=== PATIENT | male | born 1945 | race Hispanic/Latino ===

== ENCOUNTER 2024-06-27 11:17 | Emergency (ER) | payer OTHER ==
[~2024-06-27] VITALS: Ht 165.1 cm; Wt 70.3 kg
--- NOTE | 2024-06-27 11:50 | ERN ---
ED Note History of Present Illness Stated Complaint: PAIN ON BOTH LEGS Time Seen by MD: 11:18 Dictation: PATIENT IS A 79-YEAR-OLD DIABETIC MALE HERE WITH COMPLAINTS OF ERYTHEMA TENDERNESS TO THE ANTERIOR TIBIAL AREA BILATERALLY FOR THE LAST SEVERAL WEEKS. NO FEVER NO CHILLS NO NAUSEA VOMITING CURRENTLY IS AUGMENTIN FROM HIS PRIMARY CARE DOCTOR AT THE [facility]. NEUROVASCULAR AND CMS ARE INTACT HOWEVER SENSATION IS DIMINISHED SECONDARY TO PATIENT'S DIABETES. PATIENT ALSO WAS A HEMODIALYSIS PATIENT GOES Tuesday AND TUESDAY HOWEVER WENT YESTERDAY AND COMPLETED HIS DIALYSIS. Allergies: Coded Allergies: No Known Allergies (Unverified Allergy, Unknown, 06/27/24) Past Medical History RN Note Reviewed/Agreed w/PFSH: Yes Review of System Dictation CONSTITUTIONAL: NEGATIVE EXCEPT FOR HPI HEAD/FACE: NEGATIVE EXCEPT FOR HPI EENT: NEGATIVE EXCEPT FOR HPI RESPIRATORY: NEGATIVE EXCEPT FOR HPI GASTROINTESTINAL/ABDOMINAL: NEGATIVE EXCEPT FOR HPI GENITOURINARY: NEGATIVE EXCEPT FOR HPI MUSCULOSKELETAL: NEGATIVE EXCEPT FOR HPI INTEGUMENTARY: NEGATIVE EXCEPT FOR HPI BILATERAL LOWER TIBIAL ERYTHEMA, CHRONIC NEUROLOGICAL/PSYCH: NEGATIVE EXCEPT FOR HPI HEMATOLOGIC/LYMPHATIC: NEGATIVE EXCEPT FOR HPI ALL SYSTEMS NEGATIVE, EXCEPT NOTED ABOVE. 13 POINT REVIEW OF SYSTEMS ASSESSED AND ALL NEGATIVE EXCEPT FOR ABOVE. Initial Vital Sign VS Vital Signs Date Time Temp Pulse Resp B/P (MAP) Pulse Ox O2 Delivery O2 Flow Rate FiO2 06/27/24 11:52 98.2 79 18 154/67 98 06/27/24 12:22 Room Air* 0 21 Physical Exam Dictation VITAL SIGNS REVIEWED 0/10 GENERAL APPEARANCE: ALERT, ORIENTED X 3, NO ACUTE DISTRESS, WELL DEVELOPED, NOURISHED. HEAD AND FACE: NON-TRAUMATIC. EYES: PERRL, PINK CONJUNCTIVAS, EYELID NO TRAUMA, ANTERIOR CHAMBER WITH ARCUS S ENILIS. EARS: PINNAS INTACT AND NO SIGNS OF TRAUMA OR ERYTHEMA EAR CANALS CLEAR AND NO DISCHARGE TM NO ERYTHEMA NOSE: NO DISCHARGE, NO BLEEDING. OROPHARYNX: MOUTH NORMAL, TONGUE PINK, PHARYNX CLEAR,NO ERYTHEMA, TONSILS NO EXUDATES, NO ABSCESSES NOTED, MUCOUS MEMBRANE MOIST NECK: SUPPLE, NON-TENDER, NO THYROMEGALY, NO MASSES, NO JVD, NO BRUITS BREAST:DEFERRED CHEST:NO TENDERNESS, NO CREPITUS, NO PARADOXICAL MOVEMENT, NO RETRACTIONS LUNGS:CLEAR, WELL-VENTILATED, SYMMETRIC, NO RALES, NO WHEEZING, NO RHONCHI, NO STRIDOR, GOOD BREATH SOUNDS BILATERALLY HEART: REGULAR RATE, REGULAR RHYTHM, NO MURMUR, NO GALLOPS VASCULAR: NO PERIPHERAL EDEMA, ABDOMEN: SOFT, POSITIVE BOWEL SOUNDS, NONDISTENDED, NO GUARDING, NONTENDER, NO REBOUND, NO MASSES NO HEPATOMEGALY, NO SPLENOMEGALY, NO MOREL'S SIGN, NO HERNIAS. RECTAL: DEFERRED GENITAL: DEFERRED NEUROLOGICAL: NORMAL SPEECH, MOTOR FUNCTION INTACT, SENSORY FUNCTION INTACT MUSCULOSKELETAL: NECK NONTENDER, FULL RANGE OF MOTION, BACK NONTENDER, FULL RANGE OF MOTION, EXTREMITIES: NONTENDER, FULL RANGE OF MOTION SKIN: COLOR PINK, BILATERAL ANTERIOR TIBIAL LOWER LEG ERYTHEMA WITH MILD TENDERNESS TO TOUCH. DISTAL PULSES ARE PALPABLE LEG IS WARM. NO CALF SWELLING OR TENDERNESS. LYMPHATIC: DEFERRED Results (Laboratory/Radiology) Laboratory/Radiology Laboratory Tests Test 06/27/24 12:12 White Blood Count 5.9 K/uL (4.8-10.8) Red Blood Count 3.35 MIL/uL (4.50-6.20) L Hemoglobin 11.1 g/dL (14.0-18.0) L Hematocrit 34.6 % (42-54) L Mean Corpuscular Volume 103.3 fL (79-99) H Mean Corpuscular Hemoglobin 33.1 pg (27.0-33.0) H Mean Corpuscular Hemoglobin Concent 32.1 g/dL (32.0-36.0) Red Cell Distribution Width 16.6 % (11.0-15.5) H Platelet Count 178 K/uL (130-400) Mean Platelet Volume 9.5 fL (7.5-10.5) Immature Granulocyte % (Auto) 0.8 % (0-1) Neutrophils (%) (Auto) 70.3 % (40.0-77.0) Lymphocytes (%) (Auto) 8.5 % (21.0-51.0) L Monocytes (%) (Auto) 16.0 % (3.0-13.0) H Eosinophils (%) (Auto) 3.9 % (0.0-8.0) Basophils (%) (Auto) 0.5 % (0.0-5.0) Neutrophils # (Auto) 4.1 K/uL (1.8-7.7) Lymphocytes # (Auto) 0.5 K/uL (1.0-4.8) L Monocytes # (Auto) 0.9 K/uL (0.1-1.0) Eosinophils # (Auto) 0.23 K/uL (0.00-0.70) Basophils # (Auto) 0.03 K/uL (0.00-0.20) Absolute Immature Granulocyte (auto 0.05 K/uL (0-1) Nucleated Red Blood Cells 0.0 % (0.0-0.19) White Cell Morphology Comment See comments Sodium Level 133 mmol/L (136-145) L Potassium Level 4.9 mmol/L (3.5-5.1) Chloride Level 97 mmol/L (101-111) L Carbon Dioxide Level 32 mmol/L (21-32) Blood Urea Nitrogen 16 mg/dL (7-18) Creatinine 5.5 mg/dL (0.5-1.3) H Glomerular Filtration Rate Calc 10 mL/min (>90) Random Glucose 123 mg/dL (70-105) H Lactic Acid Level 1.5 mmol/L (0.8-2.5) Total Calcium 9.4 mg/dL (8.5-10.1) Labs Reviewed?: Yes ED Course ED Course Orders Procedure Category Date Status Time Blood Cult NAREN 06/27/24 In Process 11:48 Lactic Acid LAB 06/27/24 Complete 11:48 Cbc With Differential LAB 06/27/24 Complete 11:48 Basic Metabolic Panel LAB 06/27/24 Complete 11:48 Saline Lock Iv CPOE 06/27/24 Transmitted 11:48 Acetaminophen With PHA 06/27/24 Complete Codeine (Tylenol-Code 12:00 Ceftriaxone 1g Vial PHA 06/27/24 Complete (Rocephine 1g Inj) 13:30 Current Medications Medications (Trade) Dose Ordered Sig/Ashutosh Route PRN Reason Start Time Stop Time Status Last Admin Dose Admin Acetaminophen/ Codeine Phosphate (TYLenol-coDEINE TAB) 2 tab ONCE ONCE PO 06/27/24 12:00 06/27/24 12:01 DC 06/27/24 12:32 Ceftriaxone Sodium (ROCEphine 1G INJ) 1 gm ONCE ONCE IVP 06/27/24 13:30 06/27/24 13:31 DC Vital Signs Date Time Temp Pulse Resp B/P (MAP) Pulse Ox O2 Delivery O2 Flow Rate FiO2 06/27/24 12:22 98.4 77 18 142/60 96 Room Air* 0 21 06/27/24 11:52 98.2 79 18 154/67 98 1435, HEMODYNAMICALLY STABLE AND AFEBRILE. PATIENT IS ON AUGMENTIN FROM HIS DOCTOR WITH DIALYSIS. PATIENT WAS GIVEN ROCEPHIN1 G HERE AND WE WILL TREAT PATIENT FOR ERYSIPELAS AND SEND PATIENT HOME TO FOLLOW UP WITH HIS DOCTOR. Medical Decision Making MDM MDM: DIFFERENTIAL DIAGNOSIS: SEPSIS/CELLULITIS/ERYSIPELAS/ELECTROLYTE IMBALANCE/DEHYDRATION/SIRS RATIONALE: TESTS CONSIDERED AND ORDERED SECONDARY TO SHARED DECISION MAKING INCLUDE: LABS PREVIOUS OUTSIDE RECORDS REVIEWED: OLD ER VISITS. REVIEWED RISK OF COMPLICATION AND/OR MORBIDITY OR MORTALITY OF PATIENT MANAGEMENT: NONE MEDICATIONS-PER MEDICATION RECONCILIATION SEE NURSE'S NOTES NEED FOR HOSPITALIZATION: PATIENT DOES NOT MEET CRITERIA FOR HOSPITALIZATION. NO NEED FOR EMERGENCY MAJOR/MINOR SURGERY: NO THERE ARE NO SOCIAL CONCERNS WITH THIS PATIENT. PRESCRIPTION DRUG MANAGEMENT TYLENOL WITH CODEINE PRESCRIPTIONS WILL INCLUDE SYMPTOMATIC CARE PATIENT'S PRIOR EXTERNAL MEDICAL RECORDS FROM OTHER ER VISITS WERE REVIEWED BY ME INDICATED. PRIOR TESTING AND RESULTS FROM PREVIOUS VISITS WERE REVIEWED. PRIOR TESTS WERE TAKEN INTO ACCOUNT WITH MEDICAL DECISION MAKING AND RESOURCE UTILIZATION, INDEPENDENT HISTORIAN/HISTORIANS WERE USED TO OBTAIN COMPLETE MEDICAL HISTORY. I INDEPENDENTLY INTERPRETED THE TEST THAT WERE PERFORMED, RESULTS WERE REVIEWED BY ME AND CONSIDERED FINDINGS ON RADIOLOGY IF ORDERED. MEDICAL MANAGEMENT AND EXAMINATION INTERPRETATION DISCUSSIONS WERE HAD BY ME WITH OTHER QUALIFIED HEALTHCARE PROFESSIONALS INDICATED FOR THE PATIENT'S CARE. DX & DISP Disposition: Discharge Departure Impression: Primary Impression: Erysipelas of both lower extremities Additional Impressions: ESRD (end stage renal disease) on dialysis, Anemia, chronic renal failure Condition: Stable Additional Instructions: FOLLOW-UP WITH PRIMARY CARE PROVIDER IN 1 TO 2 DAYS. TAKE MEDICATIONS DIRECTED HERE IN THE EMERGENCY ROOM. OKAY TO CONTINUE HOME MEDICATIONS UNLESS OTHERWISE DISCUSSED DURING YOUR VISIT IN THE EMERGENCY ROOM TODAY. RETURN TO YOUR NEAREST EMERGENCY ROOM IF SYMPTOMS WORSEN OR IF THERE IS NO IMPROVEMENT. CALL 911 IF YOU NEED IMMEDIATE ASSISTANCE. TAKE TYLENOL OR MOTRIN OVER-THE- COUNTER NEEDED AND IF NO CONTRAINDICATIONS ARE PRESENT. INCREASE ORAL HYDRATION. A WOUND CULTURE OR URINE CULTURE WAS ORDERED HERE IN THE EMERGENCY ROOM DEPARTMENT PLEASE FOLLOW-UP WITH PRIMARY CARE PROVIDER AND ADVISE THEM TO GET REPEAT PORTS FROM OUR FACILITY. IF YOU HAD ANY STEVO WRAP/SPLINTS THAT WERE APPLIED HERE, PLEASE DO NOT REMOVE THEM UNTIL YOU SEE YOUR PRIMARY CARE OR SPECIALTY. CONTINUE ALL MEDICATIONS FROM YOUR DOCTOR. FOLLOW UP WITH HIM IN 1-2 DAYS. ELEVATE BILATERAL LOWER EXTREMITIES MUCH POSSIBLE. Time of Disposition: 14:38 I have reviewed the case, and I agree with, Diagnosis and Plan PATRICIA SANTOS NP Jun 27, 2024 11:50
[2024-06-27 12:22] VITALS: TEMP 98.4
[2024-06-27 12:30] LABS: BASOPHILS # (AUTO) 0.03 K/uL (0.00-0.20); BASOPHILS % (AUTO) 0.5 % (0.0-5.0); EOSINOPHILS # (AUTO) 0.23 K/uL (0.00-0.70); EOSINOPHILS % (AUTO) 3.9 % (0.0-8.0); HEMATOCRIT 34.6 % (42-54); IMMATURE GRANULOCYTE ABSOLUTE 0.05 K/uL (0-1); LYMPHOCYTES # (AUTO) 0.5 K/uL (1.0-4.8); LYMPHOCYTES % (AUTO) 8.5 % (21.0-51.0); MEAN CORPUSCULAR HEMOGLOBIN 33.1 pg (27.0-33.0); MEAN CORPUSCULAR HGB CONC 32.1 g/dL (32.0-36.0); MEAN CORPUSCULAR VOLUME 103.3 fL (79-99); MONOCYTES # (AUTO) 0.9 K/uL (0.1-1.0); NEUTROPHILS # (AUTO) 4.1 K/uL (1.8-7.7); NEUTROPHILS % (AUTO) 70.3 % (40.0-77.0); PLATELET COUNT (AUTO) 178 K/uL (130-400); RED BLOOD CELL COUNT(AUTO) 3.35 MIL/uL (4.50-6.20); RED CELL DISTRIBUTION WIDTH 16.6 % (11.0-15.5); WHITE BLOOD COUNT (AUTO) 5.9 K/uL (4.8-10.8)
[2024-06-27] MEDS: acetaMINOPHEN WITH coDEINE 1 TAB TAB PO ONE (12:32)
[2024-06-27 12:59] LABS: CREATININE 5.5 mg/dL (0.5-1.3); POTASSIUM 4.9 mmol/L (3.5-5.1)
[2024-06-27] MEDS ORDERED: cefTRIAXone 1G VIAL IVP ONE (13:30)
[2024-06-27 15:21] VITALS: BP 117/45; PULSE 69; RESP 18; O2SAT 95
== END 2024-06-27 16:00 | disposition home or self-care (01) ==
LOC: EDH 11:17
DX: A46 Erysipelas (principal); N18.6 End stage renal disease; D63.1 Anemia in chronic kidney disease; Z99.2 Dependence on renal dialysis
CPT/HCPCS: 36415; 80048; 83605; 85025; 87040; 99284